=== PATIENT | female | born 1980 | race Two or more races ===

== ENCOUNTER → 2016-12-02 | Outpatient (CLI) | payer BC | LOC: MW.NPGPWH 11:07 | PROVIDERS: ATTEND Obstetrics & Gynecology | DX: O00.80 Other ectopic pregnancy without intrauterine pregnancy (principal) | CPT/HCPCS: 84702 ==

== ENCOUNTER 2016-12-06 10:52 | Day surgery (SDC) | payer BC ==
[~2016-12-06 10:52] MED LIST: Lactated Ringers 1,000 ML IV SCH; Sodium Chloride 0.9% 10 ML Syringe FLUSH PRN; Sodium Chloride 0.9% 2.5 ML Syringe FLUSH PRN
[2016-12-06] MEDS ORDERED: Rocuronium 10 MG/ML 10 ML Syringe ONE (10:54)
[2016-12-06] MEDS ORDERED: Lidocaine 2% 5 ML SDV ONE (10:54)
[2016-12-06] MEDS ORDERED: Ondansetron 4 MG/2 ML SDV ONE (10:54)
[2016-12-06] MEDS ORDERED: Succinylcholine/Normal Saline 200 MG/10 ML Syringe ONE (10:54)
[2016-12-06] MEDS ORDERED: Propofol 200 MG/20 ML SDV ONE (10:55)
[2016-12-06] MEDS ORDERED: fentaNYL 250 MCG/5 ML SDV ONE (10:55)
[2016-12-06] MEDS ORDERED: Midazolam 1 MG/ML 2 ML SDV ONE (10:55)
[2016-12-06] MEDS ORDERED: Bupivacaine 0.25% 10 ML SDV ONE (11:09)
[2016-12-06] MEDS ORDERED: Vasopressin 20 Units/1 ML MDV ONE (11:20)
[2016-12-06] MEDS ORDERED: Methylene Blue 1% 10 ML SDV ONE (11:21)
--- NOTE | 2016-12-06 11:40 | PCM.PREANE ---
Preanesthetic Assessment - Anesthesia/Transfusion/Family Hx Anesthesia History: Prior Anesthesia Without Reaction Family History of Anesthesia Reaction: No Transfusion History: No Prior Transfusion(s) - Review of Systems General: No Symptoms Pulmonary: No Symptoms Cardiovascular: No Symptoms Gastrointestinal: No symptoms Neurological: No Symptoms Other: Reports: None - Physical Assessment NPO Status Date: 12/06/16 NPO Status Time: 09:00 O2 Sat by Pulse Oximetry: 100 Respiratory Rate: 16 Vital Signs: Last Vital Signs Temp 36.4 C 12/06/16 11:15 Pulse 111 H 12/06/16 11:15 Resp 16 12/06/16 11:15 BP 139/90 12/06/16 11:15 Pulse Ox 100 12/06/16 11:15 Height: 1.65 m Weight: 90.265 kg ASA Class: 5E Emergency Mental Status: Alert & Oriented x3 Airway Class: Mallampati = 1 Dentition: Reports: Normal Dentition ROM/Head Extension: Full Lungs: Clear to auscultation, Normal respiratory effort Cardiovascular: Regular Rate, Regular Rhythm - Allergies Allergies/Adverse Reactions: Allergies Allergy/AdvReac Type Severity Reaction Status Date / Time No Known Allergies Allergy Verified 12/06/16 10:56 - Anesthesia Plan Pre-Op Medication Ordered: None - Acknowledgements Anesthesia Type Planned: General Anesthesia Pt an Appropriate Candidate for the Planned Anesthesia: Yes Alternatives and Risks of Anesthesia Discussed w Pt/Guardian: Yes Pt/Guardian Understands and Agrees with Anesthesia Plan: Yes PreAnesthesia Questionnaire HEENT History: Reports: None Other HEENT History: wears contact lenses Cardiovascular History: Reports: None Respiratory History: Reports: None Gastrointestinal History: Reports: None Genitourinary History: Reports: None 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 Musculoskeletal History: Reports: None Neurological History: Reports: None Psychiatric History: Reports: None Endocrine/Metabolic History: Reports: None, Obesity/BMI 30+ Hematologic History: Reports: None Immunologic History: Reports: None Oncologic (Cancer) History: Reports: None Dermatologic History: Reports: None - Past Surgical History Head Surgeries/Procedures: Reports: None HEENT Surgical History: Reports: None Cardiovascular Surgical History: Reports: None Respiratory Surgical History: Reports: None GI Surgical History: Reports: None Female Surgical History: Reports: Other (see below) Other Female Surgeries/Procedures: left salpingectomy Endocrine Surgical History: Reports: None Neurological Surgical History: Reports: None Musculoskeletal Surgical History: Reports: None Oncologic Surgical History: Reports: None Dermatological Surgical History: Reports: None - SUBSTANCE USE Smoking Status *Q: Never Smoker Recreational Drug Use History: No - HOME MEDS Home Medications: Home Meds . [No Known Home Meds] 12/06/16 [History] - CURRENT (IN HOUSE) MEDS Current Meds: Current Medications Lactated Ringer's (Ringers, Lactated) 1,000 mls @ 125 mls/hr IV ASDIRECTED SABIHA Last Admin: 12/06/16 11:31 Dose: 125 mls/hr Sodium Chloride (Saline Flush) 10 ml FLUSH ASDIRECTED PRN PRN Reason: Keep Vein Open Sodium Chloride (Saline Flush) 2.5 ml FLUSH ASDIRECTED PRN PRN Reason: Keep Vein Open Discontinued Medications Bupivacaine HCl (Sensorcaine-Mpf 0.25%) Confirm Administered Dose 20 ml .ROUTE .STK-MED ONE Stop: 12/06/16 11:10 Fentanyl (Sublimaze) Confirm Administered Dose 250 mcg .ROUTE .STK-MED ONE Stop: 12/06/16 10:56 Lidocaine (Xylocaine-Mpf 2%) Confirm Administered Dose 5 ml .ROUTE .STK-MED ONE Stop: 12/06/16 10:55 Methylene Blue (Methylene Blue 1%) Confirm Administered Dose 30 ml .ROUTE .STK- MED ONE Stop: 12/06/16 11:22 Midazolam HCl (Versed 1 Mg/Ml) Confirm Administered Dose 2 mg .ROUTE .STK-MED ONE Stop: 12/06/16 10:56 Ondansetron HCl (Zofran) Confirm Administered Dose 4 mg .ROUTE .STK-MED ONE Stop: 12/06/16 10:55 Propofol (Diprivan 20 Ml) Confirm Administered Dose 200 mg .ROUTE .STK-MED ONE Stop: 12/06/16 10:56 Rocuronium [place] (Zemuron) Confirm Administered Dose 100 mg .ROUTE .STK-MED ONE Stop: 12/06/16 10:55 Succinylcholine Chloride (Succinylcholine In Ns Pf) Confirm Administered Dose 200 mg .ROUTE .STK-MED ONE Stop: 12/06/16 10:55 Vasopressin (Vasopressin) Confirm Administered Dose 40 units .ROUTE .STK-MED ONE Stop: 12/06/16 11:21 Preanesthetic Assessment - ANESTHESIA/TRANSFUSION/FAMILY HX Anesthesia/Transfusion History: No Prior Anesthesia Family History of Anesthesia Reaction: No - PHYSICAL ASSESSMENT O2 Sat by Pulse Oximetry: 100 RR: 16 Vital Signs: Last Vital Signs Temp 36.4 C 12/06/16 11:15 Pulse 111 H 12/06/16 11:15 Resp 16 12/06/16 11:15 BP 139/90 12/06/16 11:15 Pulse Ox 100 12/06/16 11:15 Height: 1.65 m Weight: 90.265 kg - ALLERGIES Allergies/Adverse Reactions: Allergies Allergy/AdvReac Type Severity Reaction Status Date / Time No Known Allergies Allergy Verified 12/06/16 10:56
[2016-12-06] MEDS ORDERED: HYDROmorphone 2 MG/ML Syringe ONE (12:33)
[2016-12-06] MEDS ORDERED: Neostigmine Methylsulfate 1 MG/ML 5 ML Syringe ONE (12:50)
[2016-12-06] MEDS ORDERED: fentaNYL 100 MCG/2 ML SDV ONE (13:19)
[2016-12-06] MEDS ORDERED: fentaNYL 100 MCG/2 ML SDV IVPUSH PRN (13:26)
[2016-12-06] MEDS ORDERED: Ketorolac 30 MG/ML SDV ONE (13:34)
--- NOTE | 2016-12-06 14:00 | PCM.OPNOTE ---
- General Post-Op/Procedure Note Date of Surgery/Procedure: 12/06/16 Operative Procedure(s): Laparoscopic right salpingectomy Findings: 200mls of hemoperitoneum. Right tubal . Absent left tube. Normal ovaries bilaterally Pre Op Diagnosis: Right " viable" tubal Post-Op Diagnosis: Same Anesthesia Technique: General ET tube Primary Surgeon: Luz Maria Benoit Pathology: Right tube with ectopic Fluid Replacement, Intraop: 2,100 EBL in mLs: 200 Complications: None Condition: Good
--- NOTE | 2016-12-06 14:25 | PCM.POSTAN ---
POST ANESTHESIA ASSESSMENT - MENTAL STATUS Mental Status: alert, oriented Free Text/Narrative:: still feeling somewhat sedated....."trying to wake up". - RESPIRATORY Respiratory Status: respiratory rate WNL, airway patent, O2 saturation stable - CARDIOVASCULAR CV Status: pulse rate WNL, blood pressure stable - GASTROINTESTINAL GI Status: no symptoms - POST OP HYDRATION Hydration Status: adequate & stable - OBSERVATIONS Free Text/Narrative:: to Phase II
[2016-12-06] MEDS ORDERED: Promethazine 25 MG/ML SDV IM ONE (15:16)
--- NOTE | 2016-12-06 16:56 | PCM48HPAN ---
Post Anesthesia Note - EVALUATION WITHIN 48HRS OF ANESTHETIC Vital Signs in Normal Range: Yes Patient Participated in Evaluation: Yes Respiratory Function Stable: Yes Airway Patent: Yes Cardiovascular Function Stable: Yes Hydration Status Stable: Yes Pain Control Satisfactory: Yes Nausea and Vomiting Control Satisfactory: Yes Mental Status Recovered: Yes
[2016-12-06 17:24] VITALS: BP 122/56
--- NOTE | 2016-12-06 19:40 | OR ---
SURGEON: Luz Maria Benoit MD DATE OF PROCEDURE: 12/06/2016 PREOPERATIVE DIAGNOSIS: Right tubal ectopic with cardiac activity. POSTOPERATIVE DIAGNOSES: 1. Right tubal ectopic with cardiac activity. 2. Possible ruptured right tubal ectopic . PROCEDURE: Laparoscopic right salpingectomy and evacuation of hemoperitoneum. ANESTHESIA: General endotracheal. IV FLUIDS: 2100 mL. ESTIMATED BLOOD LOSS: Hemoperitoneum of 200 mL. COMPLICATIONS: None. DISPOSITION: Stable to recovery room. FINDINGS: Uterus approximately 8-week size, bilaterally grossly normal ovaries. Absent left fallopian tube: consistent with a history of prior left salpingectomy Possible ruptured right tubal ectopic with hemoperitoneum of 200 mL. INDICATION: The patient is a 36-year-old, G3, P0, approximately 9 weeks by last menstrual period. Diagnosed with right tubal last week received Methotrexate for management.She presented to the clinic today for day # 7 serum hCG post methotrexate and serum hCG was found to be rising at 16,170 (it was around 15,000 on day #4). A sonogram was performed and it showed a right-sided tubal ectopic with cardiac activity of about 150 beats per minute. The patient denies pain or bleeding. Findings were reviewed with the patient in real-time during the sonogram and she was consented for an emergency laparoscopic salpingectomy. Surgical risks of bleeding, infection, and injury to the surrounding organs such as bowel, bladder, blood vessels, or ureter were reviewed with the patient. Risks of anesthesia were also reviewed with the patient. She understood these risks and consented for laparoscopy with possible laparotomy as indicated. Blood type is AB positive. DESCRIPTION OF PROCEDURE: The patient was taken to the operating room, where general anesthesia was administered without difficulty. After adequate level of anesthesia, she was placed in dorsal lithotomy position, prepped and draped in normal sterile fashion for laparoscopic surgery. EUA revealed a mobile 8 weeks anteverted uterus A bivalve speculum was placed in the vagina, the anterior lip of the cervix was grasped with an Allis clamp and a Zumi uterine manipulator was placed into the uterus. The surgeon's gloves were changed. Attention was turned to the abdomen where a 5 mm skin incision was made within the umbilical fold after infiltrating the skin with 0.25% Marcaine. The Veress needle was then placed while tenting the anterior abdominal wall Opening pressure was 8mmHg with relief pressure set at 15mmhg, pneumoperitoneum was achieved with CO2 gas. After sufficient pneumoperitoneum was achieved, the Veress needle was removed followed by insertion of 5 mm trocar. Entry into the pelvic cavity was confirmed with a 5 mm laparoscope. The aforementioned intraabdominal findings were noted. A 5 mm skin incision was then made in the left lower quadrant after infiltrating the area with 0.25% Marcaine followed by insertion of a 5 mm trocar under direct visualization. Suction and evacuation of hemoperitoneum was performed, evacuating approximately 200 mL of blood and clot from the pelvic cavity. The right tubal was noted, with blood clot attached to the fimbrial end of the tube but not active bleeding noted. No active bleeding was noted. Both ovaries were noted to be grossly normal. The left fallopian tube was found to be absent (the patient had a left salpingectomy performed in 2014 for a ruptured ectopic). A 12 mm skin incision was then made in the right lower quadrant followed by insertion of a 12 mm trocar under direct visualization. Using a grasper the right fallopian tube was then grasped at the fimbrial end and held up away from the pelvic side wall, then using a 5 mm LigaSure device, right salpingectomy was performed by clamping and cauterizing along the mesosalpinx with good hemostasis noted. This process was continued until the right cornea of the uterus was reached, releasing the right fallopian tube with the ectopic encased in it. An Endobag was then introduced into the abdominal cavity via the right port and the tube was placed into it and retrieved and sent for pathology. Copious suction and irrigation of the pelvic cavity was performed. The operative site was evaluated and found to be completely hemostatic. Further irrigation was performed and the area was then evaluated under lower pressure with gas released dropped to 5 mmHg. The area was found to be completely hemostatic. Gas was released from the abdomen. The trocars were removed under direct visualization. The fascia at the 12 mm incision in the right lower quadrant was closed with 2-0 Vicryl. All skin incisions were then closed with 4 - 0 Monocryl in subcuticular fashion. The patient was taken to the recovery room in stable condition. Sponge, needle, and instrument counts were correct at the end of the procedure. ADUMVIV / MODL /[id number] NOHEMY
== END 2016-12-06 17:00 | disposition home or self-care (01) ==
LOC: MW.SDS 10:52
PROVIDERS: ATTEND Obstetrics & Gynecology
PROC: 10T24ZZ Resection of Products of Conception, Ectopic, Percutaneous Endoscopic Approach (ICD-10-PCS; principal; 2016-12-06)
PROC: 0UT54ZZ Resection of Right Fallopian Tube, Percutaneous Endoscopic Approach (ICD-10-PCS; 2016-12-06)
DX: O00.10 Tubal pregnancy without intrauterine pregnancy (principal); Z3A.09 9 weeks gestation of pregnancy; E66.9 Obesity, unspecified; Z90.79 Acquired absence of other genital organ(s); Z68.33 Body mass index [BMI] 33.0-33.9, adult
CPT/HCPCS: 36415; 59151; 85025; 86850; 86900; 86901; 88305; J1170; J1885; J2250; J2405; J2550; J3010; J7120; Q9968; 00840; J2704

== ENCOUNTER 2021-12-11 12:54 | Emergency (ER) | payer BC ==
[2021-12-11] MEDS ORDERED: Ketorolac 60 MG/2 ML SDV IM ONE (13:22)
[2021-12-11] MEDS ORDERED: predniSONE 20 MG Tab PO ONE (13:23)
[2021-12-11] MEDS ORDERED: predniSONE 20 MG Tab ONE (13:51)
[2021-12-11 15:23] VITALS: BP 151/67; PULSE 118
== END 2021-12-11 13:18 | disposition home or self-care (01) ==
LOC: MW.ED 12:54
DX: M54.31 Sciatica, right side (principal); E66.9 Obesity, unspecified; Z68.33 Body mass index [BMI] 33.0-33.9, adult
CPT/HCPCS: 96372; 99283; A9270; J1885; J3360

== ENCOUNTER 2021-12-14 08:42 | Emergency (ER) | payer BC ==
[2021-12-14] MEDS ORDERED: Diazepam 5 MG Tab PO ONE ×2 (08:58→10:48)
[2021-12-14] MEDS ORDERED: Ketorolac 60 MG/2 ML SDV IM ONE (08:58)
[2021-12-14] MEDS ORDERED: Morphine 4 MG/ML VIAL IM ONE ×2 (09:04→11:30)
[2021-12-14] MEDS ORDERED: Ondansetron 4 MG Tab.DIS PO ONE (09:05)
[2021-12-14] MEDS ORDERED: Acetaminophen 500 MG Tab PO ONE (10:48)
[2021-12-14 11:47] VITALS: BP 159/85; PULSE 120
== END 2021-12-14 11:44 | disposition home or self-care (01) ==
LOC: MW.ED 08:42
DX: M54.16 Radiculopathy, lumbar region (principal); E66.9 Obesity, unspecified; Z68.36 Body mass index [BMI] 36.0-36.9, adult
CPT/HCPCS: 96372; 99283; A9270; J1885; J2270